=== PATIENT | female | born 1970 | race Caucasian/White ===

== ENCOUNTER 2021-04-26 07:02 | Day surgery (SDC) | payer OTHER, SELFPAY ==
[~2021-04-26] VITALS: Ht 154.9 cm; Wt 70.3 kg
[~2021-04-26 07:02] MED LIST: CEFAZOLIN SOD 2 GM in D5W 50 ML IV ONE
[2021-04-26] MEDS ORDERED: ONDANSETRON HCL 4 MG/2 ML VIAL IVP PRN (09:45)
[2021-04-26] MEDS ORDERED: NALOXONE HCL 0.4 MG/ML AMP (NARCAN) IVP PRN (09:45)
[2021-04-26] MEDS ORDERED: HYDROmorphone 1 MG/ML INJ. CARTRIDGE IVP PRN (09:45)
[2021-04-26] MEDS ORDERED: KETOROLAC TROMETHAMINE 30 MG VIAL IVP PRN (09:45)
[2021-04-26] MEDS ORDERED: MEPERIDINE HCL/PF 25 MG/ML DISP.SYRIN IVP PRN (09:45)
[2021-04-26] MEDS ORDERED: LR 1,000 ML IV SCH (09:45)
[2021-04-26] MEDS ORDERED: KETOROLAC TROMETHAMINE 30 MG VIAL ONE (11:12)
[2021-04-26] MEDS ORDERED: DEXAMETHASONE SOD PHOSPHATE 4 MG/ML VIAL ONE (11:12)
[2021-04-26] MEDS ORDERED: HYDROmorphone 2 MG/ML VIAL ONE (11:12)
[2021-04-26] MEDS ORDERED: GLYCOPYRROLATE 0.2 MG/ML VIAL ONE (11:12)
[2021-04-26] MEDS ORDERED: fentaNYL CITRATE/PF 100 MCG/2 ML AMP ONE (11:12)
[2021-04-26] MEDS ORDERED: ROCURONIUM BROMIDE 10 MG/ML (ZEMURON) ONE (11:12)
[2021-04-26] MEDS ORDERED: METOCLOPRAMIDE HCL 10 MG/2 ML VIAL ONE (11:12)
[2021-04-26] MEDS ORDERED: IOHEXOL 300 mgI/mL, 50 mL INFUS..BTL IV ONE (11:12)
[2021-04-26] MEDS ORDERED: NS 1000 ML IV.SOLN IV ONE (11:12)
[2021-04-26] MEDS ORDERED: ONDANSETRON HCL 4 MG/2 ML VIAL ONE ×2 (11:12→13:18)
[2021-04-26] MEDS ORDERED: SEVOFLURANE 15 MIN GAS INH ONE (11:12)
[2021-04-26] MEDS ORDERED: LR 1,000 ML IV.SOLN IV ONE (11:12)
[2021-04-26] MEDS ORDERED: BUPIVACAINE /EPINEPHRINE/PF 0.5% 30 ML VIAL INJ ONE (11:12)
[2021-04-26] MEDS ORDERED: PROPOFOL 200MG/ 20ML VIAL (DIPRIVAN) IV ONE (11:12)
[2021-04-26] MEDS ORDERED: PHENYLEPHRINE HCL 10 MG/ML VIAL (NEOSYNEPHRINE) ONE (11:12)
[2021-04-26] MEDS ORDERED: NS IRRIG SOLN 1000 ML IR ONE (11:12)
[2021-04-26] MEDS ORDERED: MIDAZOLAM HCL 5 MG/ML VIAL (VERSED) IV ONE (11:12)
[2021-04-26 13:23] VITALS: BP_SYST 121
== END 2021-04-26 14:20 | disposition home or self-care (01) ==
LOC: SDS 07:02 → SMU 07:03 → SDS 14:20
PROVIDERS: ATTEND Surgery
DX: K80.10 Calculus of gallbladder with chronic cholecystitis without obstruction (principal); I10 Essential (primary) hypertension; E11.65 Type 2 diabetes mellitus with hyperglycemia; E78.2 Mixed hyperlipidemia; Z98.82 Breast implant status; Z79.899 Other long term (current) drug therapy; Z20.822 Contact with and (suspected) exposure to COVID-19
CPT/HCPCS: 47563; 74300; 82962; 88304; 88305; C1727; C1758; J0690; J1100; J1170; J1885; J2250; J2370; J2405; J2704; J2765; J3010; J3490 ×2; J7030; J7060; J7120; Q9967; U0003; 76000